=== PATIENT | male | born 1945 ===

== ENCOUNTER 2017-05-29 07:10 | Day surgery (SDC) | payer MEDICARE, BC ==
[2016-11-30 13:58] VITALS: BMI 28.0
[2017-05-29] MEDS ORDERED: Propofol 10 mg/ml Inj (20 ML) ONE (09:00)
[2017-05-29] MEDS ORDERED: Sodium Chloride 0.9% 1,000 ML IV SCH (09:30)
[2017-05-29 10:03] VITALS: PULSE 59
[2017-05-29 11:09] VITALS: BP 123/68; RESP 18; TEMP 97.7; O2SAT 100
== END 2017-05-29 11:03 | disposition home or self-care (01) ==
LOC: ENDO 07:10
PROVIDERS: ATTEND Specialist
DX: K22.10 Ulcer of esophagus without bleeding (principal); K29.50 Unspecified chronic gastritis without bleeding; Q38.7 Congenital pharyngeal pouch; K44.9 Diaphragmatic hernia without obstruction or gangrene; I25.10 Atherosclerotic heart disease of native coronary artery without angina pectoris; I10 Essential (primary) hypertension; E78.5 Hyperlipidemia, unspecified; Z87.01 Personal history of pneumonia (recurrent); Z96.642 Presence of left artificial hip joint; Z95.1 Presence of aortocoronary bypass graft
CPT/HCPCS: 43239; 88305; 88312; 88342; J2704; J7040 ×2

== ENCOUNTER 2018-03-12 06:31 | Day surgery (SDC) | payer MEDICARE, BC ==
[2018-03-07 09:40] VITALS: BMI 29.5
[2018-03-12 07:13] VITALS: TEMP 98
[2018-03-12] MEDS ORDERED: Lidocaine 2% Inj (20ml) ONE (08:09)
[2018-03-12] MEDS ORDERED: Propofol 10 mg/ml Inj (20 ML) ONE (08:09)
[2018-03-12] MEDS ORDERED: Sodium Chloride 0.9% 1,000 ML IV SCH (09:15)
[2018-03-12 10:01] VITALS: BP 115/62; PULSE 63; RESP 16; O2SAT 95
== END 2018-03-12 10:30 | disposition home or self-care (01) ==
LOC: ENDO 06:31
PROVIDERS: ATTEND Specialist
DX: Z12.11 Encounter for screening for malignant neoplasm of colon (principal); D12.4 Benign neoplasm of descending colon; K62.1 Rectal polyp; K57.30 Diverticulosis of large intestine without perforation or abscess without bleeding; K64.8 Other hemorrhoids; K63.89 Other specified diseases of intestine; I25.10 Atherosclerotic heart disease of native coronary artery without angina pectoris; Z87.01 Personal history of pneumonia (recurrent); K22.10 Ulcer of esophagus without bleeding
CPT/HCPCS: 45380; 88305; J2704; J7040